=== PATIENT | male | born 1955 | race Caucasian/White ===

== ENCOUNTER 2018-06-18 10:59 | Outpatient (CLI) | payer OTHER | END 2018-06-18 11:00 | disposition home or self-care (01) | LOC: DI 10:59 | PROVIDERS: ATTEND Internal Medicine | DX: R55 Syncope and collapse (principal); I35.2 Nonrheumatic aortic (valve) stenosis with insufficiency; I34.0 Nonrheumatic mitral (valve) insufficiency | CPT/HCPCS: 93306 ==